=== PATIENT | female | born 1980 | race American Indian/Alaskan Native ===

== ENCOUNTER 2017-04-08 18:54 | Emergency (ER) | payer MEDICAID ==
[2017-04-08 19:13] VITALS: PULSE 77
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
[2017-04-08 19:48] LABS: % IMMATURE GRANULYOCYTES 0.2 % (0.0-1.1); ABSOLUTE IMMATURE GRANULOCYTES 0.02 10^3/uL (0.00-0.10); ADD DIFF? NO; ADD MORPH? NO; ADD SCAN? NO; ATYPICAL LYMPHOCYTE FLAG 60 (0-99); FRAGMENT RBC FLAG 0 (0-99); HEMATOCRIT 37.9 % (38.0-47.0); HEMOGLOBIN 12.7 g/dL (12.6-16.3); LEFT SHIFT FLG 0 (0-99); LIPEMIA HEMOLYSIS FLAG 80 (0-99); MEAN CELL HEMOGLOBIN 30.5 pg (27.9-34.1); MEAN CELL HEMOGLOBIN CONCENTR. 33.5 g/dL (32.4-36.7); MEAN CELL VOLUME 90.9 fL (81.5-99.8); MEAN PLATELET VOLUME 9.7 fL (8.7-11.7); PLATELET CLUMPS FLAG 0 (0-99); PLATELET COUNT 229 10^3/uL (150-400); RED BLOOD CELL COUNT 4.17 10^6/uL (4.18-5.33)
[2017-04-08 20:05] LABS: ANION GAP 12 mEq/L (8-16); C-REACTIVE PROTEIN 24.2 mg/L (<10.0); CALCIUM 8.9 mg/dL (8.5-10.4); CARBON DIOXIDE 22 mEq/l (22-31); CHLORIDE 100 mEq/L (97-110); CREATININE 0.8 mg/dL (0.6-1.0); GLOMERULAR FILTRATION RATE > 60; GLUCOSE 86 mg/dL (70-100); POTASSIUM 3.8 mEq/L (3.5-5.2); SODIUM 134 mEq/L (134-144)
[2017-04-08] MEDS ORDERED: IOPAMIDOL (ISOVUE-300) 100 ML BTL ONE (20:08)
[2017-04-08 20:20] LABS: SEDIMENTATION RATE 18 MM/HR (0-20)
[2017-04-08] MEDS ORDERED: CLINDAMYCIN 150 MG CAP PO ONE (21:19)
[2017-04-08] MEDS ORDERED: CLINDAMYCIN 150MG PREPACK#6 BTL TAKEHOME ONE (21:19)
[2017-04-08] MEDS ORDERED: HYDROCOD/APAP 5/325 PREPACK#6 BTL TAKEHOME ONE (21:20)
[2017-04-08 22:45] VITALS: BP 139/88; RESP 18; TEMP 98.1; O2SAT 95
== END 2017-04-08 22:46 | disposition home or self-care (01) ==
DX: S02.2XXA Fracture of nasal bones, initial encounter for closed fracture (principal); K04.7 Periapical abscess without sinus; J32.0 Chronic maxillary sinusitis; Y08.89XA Assault by other specified means, initial encounter
CPT/HCPCS: 82947-QW; Q9967

== ENCOUNTER 2017-05-25 23:59 | Emergency (ER) | payer MEDICAID ==
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
[2017-05-26] MEDS ORDERED: NS 1,000 ML IV ONE (00:10)
[2017-05-26] MEDS ORDERED: ONDANSETRON 4 MG/2 ML VIAL ONE (00:10)
[2017-05-26] MEDS ORDERED: ONDANSETRON 4 MG/2 ML VIAL IVP ONE (00:10)
[2017-05-26] MEDS ORDERED: CHLORDIAZEPOXIDE 25MG PREPK#6 BTL TAKEHOME ONE (07:17)
[2017-05-26 07:43] VITALS: BP 101/74; PULSE 92; RESP 18; TEMP 98.1; O2SAT 97
== END 2017-05-26 07:42 | disposition home or self-care (01) ==
LOC: EDUNIT#
DX: F10.920 Alcohol use, unspecified with intoxication, uncomplicated (principal); W01.198A Fall on same level from slipping, tripping and stumbling with subsequent striking against other object, initial encounter; Y92.89 Other specified places as the place of occurrence of the external cause
CPT/HCPCS: 96374; G0480; J2405

== ENCOUNTER 2017-06-12 03:20 | Emergency (ER) | payer MEDICAID ==
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
[2017-06-12 03:30] VITALS: BP 149/84; PULSE 90; RESP 18; TEMP 97.9; O2SAT 98
== END 2017-06-12 03:37 | disposition home or self-care (01) ==
DX: K08.89 Other specified disorders of teeth and supporting structures (principal)

== ENCOUNTER 2017-08-06 17:24 | Emergency (ER) | payer MEDICAID ==
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
[2017-08-06] MEDS ORDERED: chlordiazePOXIDE 25 MG CAP PO ONE (17:45)
[2017-08-06] MEDS ORDERED: LORazepam 1 MG TAB PO ONE (17:45)
[2017-08-06] MEDS ORDERED: ONDANSETRON DISINTEGRATING 4 MG TAB PO ONE (17:45)
[2017-08-06] MEDS ORDERED: LORAZEPAM 1 MG PREPACK#4 BTL TAKEHOME ONE (17:55)
[2017-08-06] MEDS ORDERED: CHLORDIAZEPOXIDE 25MG PREPK#6 BTL TAKEHOME ONE (17:55)
[2017-08-06 19:24] VITALS: BP 139/89
== END 2017-08-06 19:47 | disposition home or self-care (01) ==
DX: F10.230 Alcohol dependence with withdrawal, uncomplicated (principal)

== ENCOUNTER 2018-01-29 09:51 | Emergency (ER) | payer MEDICAID ==
[2018-01-29] MEDS ORDERED: CHLORDIAZEPOXIDE 25MG PREPK#6 BTL TAKEHOME ONE (10:30)
[2018-01-29] MEDS ORDERED: LORazepam 1 MG TAB PO ONE (10:30)
--- NOTE | 2018-01-29 10:34 | EDPHY ---
H & P Time Seen by Provider: 01/29/18 10:18 HPI/ROS: CHIEF COMPLAINT: "I'm withdrawing" HISTORY OF PRESENT ILLNESS: 37-year-old female currently being treated for scabies [facility] for benzodiazepine, complaining of withdrawal symptoms, last drink yesterday. She is tremulous. Denies hallucination. Denies suicidal or homicidal ideation. Denies seizure. PRIMARY CARE PROVIDER: REVIEW OF SYSTEMS: 10 systems reviewed and negative with the exception of the elements mentioned in the history of present illness PAST MEDICAL & SURGICAL HISTORY: Active treatment for scabies SOCIAL HISTORY: Positive daily alcohol use. Last drink yesterday afternoon PHYSICAL EXAM (Prior to examination, patient consented to physical exam, hands were washed and my usual and customary physical exam procedures followed) 1) GENERAL: Well-developed, well-nourished, alert and oriented. Appears to be in no acute distress. 2) HEAD: Normocephalic, atraumatic 3) HEENT: Pupils equal, round, reactive to light bilaterally. Sclera anicteric. 4) NECK: Full range of motion, no meningeal signs. 5) LUNGS: Clear auscultation bilaterally, no wheezes, no rhonchi, no retractions. 6) HEART: Regular rate and rhythm, no murmur, no heave, no gallop. 7) ABDOMEN: No guarding, no rebound, no focal tenderness, negative McBurney's, negative Ames's, negative Rovsing's, negative peritoneal sign, 8) MUSCULOSKELETAL: Moving all extremities, no focal areas of tenderness, no obvious trauma. No peripheral edema or discoloration. 9) BACK: No CVA tenderness, no midline vertebral tenderness, no fluctuance, no step-off, no obvious trauma, no visual or palpable abnormality. 10) SKIN: Multiple punctate skin lesions consistent with scabies, no evidence of bacterial super infection 11) Psychiatric: Patient is oriented X 3, there is no agitation. Tremulous DIFFERENTIAL DIAGNOSIS: In no particular order including but not limited to acute alcohol withdrawal, alcohol withdrawal seizure, delirium tremens Smoking Status: Never smoked Constitutional: Initial Vital Signs Temperature (C) 36.7 C 01/29/18 09:54 Heart Rate 92 01/29/18 09:54 Respiratory Rate 18 01/29/18 09:54 Blood Pressure 134/103 H 01/29/18 09:54 O2 Sat (%) 98 01/29/18 09:54 O2 Delivery Mode Room Air Allergies/Adverse Reactions: Penicillins Allergy (Intermediate, Verified 01/29/18 09:59) Hives amoxicillin Allergy (Verified 01/29/18 09:59) ketamine Allergy (Verified 01/29/18 09:59) Home Medications: Medication Instructions Recorded NK [No Known Home Meds] 08/06/17 MDM/Departure - [facility] ED Course/Re-evaluation: Doubt delirium tremens, doubt seizure. Doubt alcoholic hallucinosis. I do not think hospitalization is indicated. She would [facility]. She will be treated with benzodiazepine and [facility] to the [facility] with prepack of Librium. I saw this patient independently based on established practice protocols. Care of patient under supervision of secondary supervising physician Dr Jacob . - Depart Disposition: Home, Routine, Self-Care Clinical Impression: Alcohol withdrawal Qualifiers: Complication of substance-induced condition: uncomplicated Qualified Code(s): F10.230 - Alcohol dependence with withdrawal, uncomplicated Condition: Good Instructions: Chlordiazepoxide (By mouth), Abuse of Alcohol (ED) Additional Instructions: Please consider long-term sobriety from alcohol Referrals: [facility] 24 Hours [Outside] - 1 day without fail
[2018-01-29 11:29] VITALS: BP 124/95
== END 2018-01-29 11:53 | disposition home or self-care (01) ==
DX: F10.230 Alcohol dependence with withdrawal, uncomplicated (principal)

== ENCOUNTER 2018-03-09 00:40 | Emergency (ER) | payer OTHER, MEDICAID ==
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
[2018-03-09 01:51] VITALS: BP 99/57
== END 2018-03-09 01:50 | disposition home or self-care (01) ==
LOC: EDUNIT#
DX: F12.951 Cannabis use, unspecified with psychotic disorder with hallucinations (principal); F10.920 Alcohol use, unspecified with intoxication, uncomplicated; F41.9 Anxiety disorder, unspecified

== ENCOUNTER 2018-05-18 21:43 | Emergency (ER) | payer MEDICAID ==
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
[2018-05-18 22:30] VITALS: BP 111/78
== END 2018-05-18 23:06 | disposition home or self-care (01) ==
LOC: EDUNIT#
DX: S00.83XA Contusion of other part of head, initial encounter (principal); F10.10 Alcohol abuse, uncomplicated; F41.9 Anxiety disorder, unspecified; Y04.8XXA Assault by other bodily force, initial encounter; Y92.9 Unspecified place or not applicable; Y93.9 Activity, unspecified; Y99.9 Unspecified external cause status

== ENCOUNTER 2018-05-21 19:16 | Emergency (ER) | payer MEDICAID ==
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
[2018-05-21 19:21] VITALS: BP 117/95
[2018-05-21] MEDS ORDERED: CHLORDIAZEPOXIDE 25MG PREPK#6 BTL TAKEHOME ONE ×2 (19:27)
== END 2018-05-21 19:33 | disposition home or self-care (01) ==
LOC: EDUNIT#
DX: F10.920 Alcohol use, unspecified with intoxication, uncomplicated (principal)